=== PATIENT | female | born 1990 | race Two or more races ===

== ENCOUNTER 2017-07-05 19:37 | Emergency (ER) | payer SELFPAY, MEDICAID ==
[2017-07-05] MEDS: predniSONE 20 MG TABLET PO (20:53)
[2017-07-05] MEDS: CETIRIZINE HCL 10 MG TABLET. PO (20:53)
== END 2017-07-05 21:01 | disposition home or self-care (01) ==
LOC: ER 19:37
DX: B01.9 Varicella without complication (principal)
CPT/HCPCS: 99283; J7512

== ENCOUNTER 2019-07-06 17:51 | Emergency (ER) | payer SELFPAY ==
[~2019-07-06 17:51] MED LIST: ACYC800T PO; HYDR25TA PO; METH4TAB2 PO
[2019-07-06 18:05] VITALS: BP 136/59
[2019-07-06 19:23] LABS: INFLUENZA A PATIENT NEGATIVE (NEGATIVE)
[2019-07-06 19:25] LABS: INFLUENZA B PATIENT POSITIVE (NEGATIVE)
[2019-07-06] MEDS ORDERED: OSEL75CA PO (19:40)
--- NOTE | 2019-07-06 19:41 | PHYS DOC ---
Past Medical History Past Medical History: No Pertinent History Past Surgical History: No Surgical History Alcohol Use: None Drug Use: None Adult General Chief Complaint Chief Complaint: FEVER HPI HPI Patient is a 28 year old female who presents to the ED today with fever, body aches, chills and headaches that began yesterday. Review of Systems Review of Systems Constitutional: Reports fever, body aches and chills] Eyes: Denies change in visual acuity, redness, or eye pain [] HENT: Denies nasal congestion or sore throat [] Respiratory: Denies cough or shortness of breath [] Cardiovascular: No additional information not addressed in HPI [] GI: Denies abdominal pain, nausea, vomiting, bloody stools or diarrhea [] : Denies dysuria or hematuria [] Musculoskeletal: Denies back pain or joint pain [] Integument: Denies rash or skin lesions [] Neurologic: Reports headaches, denies focal weakness or sensory changes [] All other systems were reviewed and found to be within normal limits, except as documented in this note. Allergies Allergies Allergies Coded Allergies Type Severity Reaction Last Updated Verified No Known Drug Allergies 07/05/17 No Physical Exam Physical Exam Constitutional: Well developed, well nourished, no acute distress, non-toxic appearance. [] HENT: Normocephalic, atraumatic, bilateral external ears normal, oropharynx moist, no oral exudates, nose normal. [] Eyes: PERRLA, EOMI, conjunctiva normal, no discharge. [] Neck: Normal range of motion, no tenderness, supple, no stridor. [] Cardiovascular:Heart rate regular rhythm, no murmur [] Lungs & Thorax: Bilateral breath sounds clear to auscultation [] Abdomen: Bowel sounds normal, soft, no tenderness, no masses, no pulsatile masses. [] Skin: Warm, dry, no erythema, no rash. [] Back: No tenderness, no CVA tenderness. [] Extremities: No tenderness, no cyanosis, no clubbing, ROM intact, no edema. [] Neurologic: Alert and oriented X 3, normal motor function, normal sensory function, no focal deficits noted. [] Psychologic: Affect normal, judgement normal, mood normal. [] Current Patient Data Vital Signs Vital Signs Date Time Temp Pulse Resp B/P (MAP) Pulse Ox O2 Delivery O2 Flow Rate FiO2 07/06/19 18:05 98.3 104 12 136/59 (84) 96 Room Air 98.3 Lab Values Laboratory Tests Test 07/06/19 18:20 Influenza Type A Antigen Negative (NEGATIVE) Influenza Type B Antigen Positive (NEGATIVE) EKG EKG [] Radiology/Procedures Radiology/Procedures [] Course & Med Decision Making Course & Med Decision Making Pertinent Labs and Imaging studies reviewed. (See chart for details) This is a 28-year-old female patient presenting to the ED today with flulike symptoms including fever or body aches and chills that began yesterday. Positive for influenza B. Discharged with Tamiflu. Follow-up with PCP in 1-2 weeks. Dragon Disclaimer Dragon Disclaimer This electronic medical record was generated, in whole or in part, using a voice recognition dictation system. Departure Departure Impression: Primary Impression: Influenza B Additional Impression: Fever Disposition: HOME, SELF-CARE Condition: STABLE Referrals: NO PCP (PCP) follow up in 1-2 weeks Patient Instructions: Influenza, Adult, [id number] Additional Instructions: You tested positive for influenza B. We'll put you on Tamiflu, take it as prescribed. Take Tylenol/ibuprofen as needed for pain or fever. Push fluids, rest, maintain good hand hygiene and follow-up with your own doctor in 1-2 weeks. Scripts Oseltamivir Phosphate (TAMIFLU) 75 Mg Capsule 1 CAP PO BID, #10 CAP Prov: YONATAN RUTLEDGE APRN 07/06/19 Problem Qualifiers Additional Impression: Fever Fever type: unspecified Qualified Codes: R50.9 - Fever, unspecified YONATAN RUTLEDGE [employer] Jul 06, 2019 19:41
== END 2019-07-06 20:06 | disposition home or self-care (01) ==
LOC: ER 17:51
DX: J10.1 Influenza due to other identified influenza virus with other respiratory manifestations (principal); R50.9 Fever, unspecified; R51 Headache
CPT/HCPCS: 87804; 99284

== ENCOUNTER 2020-08-07 20:21 | Inpatient (IN) | payer MEDICAID ==
[~2020-08-07] VITALS: Ht 162.6 cm; Wt 80.3 kg
[~2020-08-07 20:21] MED LIST changes: +OSEL75CA PO
[2020-08-07] MEDS ORDERED: IV RINGERS,LACTATED 1000ML 1,000 ML IV PRN ×2 (20:45→21:30)
[2020-08-07 21:04] LABS: BILIRUBIN,URINE NEGATIVE (NEG); CLARITY,URINE CLEAR; COLOR,URINE YELLOW; NITRITE,URINE NEGATIVE (NEG); PH,URINE 6.5 (<5.0-8.0); PROTEIN,URINE >=300 mg/dL (NEG-TRACE)
[2020-08-07 21:09] LABS: BARBITURATES NEG (NEG); BENZODIAZEPINES NEG (NEG); CANNABINOIDS NEG (NEG); COCAINE NEG (NEG); METHADONE NEG (NEG); OPIATES NEG (NEG); PHENCYCLIDINE NEG (NEG)
[2020-08-07 21:11] LABS: BACTERIA,URINE MODERATE /HPF (0-FEW); WBC,URINE 20-40 /HPF (0-4)
[2020-08-07 21:12] LABS: AMPHETAMINE/METHAMPHETAMINE NEG (NEG)
[2020-08-07 21:13] LABS: YEAST,URINE PRESENT /HPF
[2020-08-07] MEDS ORDERED: OXYTOCIN 30 UNIT/500 ML PREMIX 500 ML IV PRN ×2 (21:30)
[2020-08-07] MEDS ORDERED: fentaNYL PF VIAL 100 MCG/2 ML VIAL IVP PRN (21:30)
[2020-08-07] MEDS ORDERED: 0.9 % SODIUM CHLORIDE 10 ML DISP.SYRIN. IV PRN ×2 (21:30)
[2020-08-07] MEDS ORDERED: LIDOCAINE 1% PF 30 ML VIAL. INJ PRN (21:30)
[2020-08-07] MEDS ORDERED: TERBUTALINE 1 MG/ML VIAL. SQ PRN (21:30)
[2020-08-07] MEDS ORDERED: ONDANSETRON PF 4 MG/2 ML VIAL. IVP PRN (21:30)
[2020-08-07] MEDS ORDERED: IBUPROFEN 400 MG TABLET. PO PRN (21:30)
[2020-08-07] MEDS ORDERED: ACETAMINOPHEN 500 MG TABLET PO PRN (22:00)
[2020-08-07] MEDS ORDERED: PENICILLIN G K 5,000,000 UNIT in IV DEXTROSE 5% 100ML 100 ML IV ONE (22:00)
[2020-08-07 22:09] VITALS: BP 152/86
[2020-08-07 22:17] LABS: BASO # 0.1 x10^3/uL (0.0-0.2); BASO % 1 % (0-3); EOS # 0.1 x10^3/uL (0.0-0.7); EOS % 1 % (0-3); HEMATOCRIT 30.3 % (36.0-47.0); LYMPH # 1.6 x10^3/uL (1.0-4.8); LYMPH % 16 % (24-48); MEAN CORPUSCULAR HEMOGLOBIN 25 pg (25-35); MEAN CORPUSCULAR HGB CONC 33 g/dL (31-37); MEAN CORPUSCULAR VOLUME 75 fL (79-100); MONO # 0.7 x10^3/uL (0.0-1.1); MONO % 7 % (0-9); NEUT # 7.6 x10^3/uL (1.8-7.7); NEUT % 76 % (31-73); PLATELET COUNT 292 x10^3/uL (140-400); RED BLOOD COUNT 4.04 x10^6/uL (3.50-5.40); RED CELL DISTRIBUTION WIDTH 16.3 % (11.5-14.5)
[2020-08-07 22:33] LABS: CALCIUM 8.9 mg/dL (8.5-10.1); CREATININE 0.7 mg/dL (0.6-1.0); GFR 99.6; POTASSIUM 3.6 mmol/L (3.5-5.1)
[2020-08-07 22:36] LABS: CREATININE,RANDOM URINE 48.1 mg/dL (Not Establ.)
[2020-08-07 22:43] LABS: ALBUMIN 2.5 g/dL (3.4-5.0); ALBUMIN/GLOBULIN RATIO 0.6 (1.0-1.7); DIRECT BILIRUBIN 0.1 mg/dL (0.0-0.2); TOTAL BILIRUBIN 0.4 mg/dL (0.2-1.0); TOTAL PROTEIN 6.8 g/dL (6.4-8.2); URIC ACID 5.2 mg/dL (2.6-6.0)
[2020-08-07] MEDS ORDERED: MAGNESIUM SULFATE 4GM 100 ML IV ONE (23:00)
[2020-08-07] MEDS ORDERED: hydrALAZINE 20 MG/ML VIAL. IVP PRN (23:00)
[2020-08-07] MEDS ORDERED: MAGNESIUM SULFATE 2GM 50 ML IV ONE (23:30)
[2020-08-07] MEDS: MAGNESIUM SULFATE 20GM 500 ML IV SCH (23:33)
[2020-08-08] VITALS (9 sets, daily range): BP systolic 122–142; BP diastolic 72–82
--- NOTE | 2020-08-08 00:21 | RAD ---
Limited OB ultrasound greater than 14 weeks to 1421 Clinical History: Near-term . Maternal hypertension. No care. Technique: A real-time ultrasound examination of the gravid uterus was performed. Multiple images wer e obtained. Findings: There is a single living IUP. The fetus is in a vertex position. cardiac and somatic activity is seen. The heart rate is 147 beats per minutes. The placenta is in a left lateral an terior/fundal position. No significant abnormality is seen. The amniotic fluid volume is within the l ower limits of normal. The BRAD measures 4.7 cm. The largest pocket of fluid measures 2.75 cm . Neithe r maternal ovary is visualized. The following measurements were obtained: BPD 8.65cm 34 weeks 6 days HC 32.46 cm 36weeks 5 days AC 29.23 cm 33weeks to days FL 6.93 cm 35 weeks 4 days The estimated gestational age by ultrasound is 35 weeks 1 days plus or minus a standard deviation of 3 weeks. The estimated date of delivery by ultrasound is 09/10/2020. The estimated weight is 242 6 g +/- 359 g (5 lbs. 6 oz.) Detailed evaluation of anatomy was not performed due to the advanced age of this . Impression: Single living IUP with an estimated gestational age by ultrasound of 35 weeks1 days +/- a standard deviation of 3 weeks. Estimated weight is 2426 g +/- 359 g (5 lbs. 6 oz.) Electronically signed by: Max Fernandez MD (08/08/2020 12:18 AM) [id number]
[2020-08-08] MEDS: BETAMET ACET&NA PHOS 30 MG/5 ML VIAL. IM SCH (00:49)
[2020-08-08] MEDS: PENICILLIN G K 2,500,000 UNIT in IV DEXTROSE 5% 50 ML IV SCH ×6 (02:19→22:00)
[2020-08-08] MEDS ORDERED: OXYTOCIN 10 UNIT/ML VIAL. ONE ×3 (08:00→08:51)
[2020-08-08] MEDS ORDERED: PHENYLEPHRINE in 0.9% NACL PF 1 MG/10 ML SYRINGE. IV ONE (08:00)
[2020-08-08] MEDS ORDERED: fentaNYL PF VIAL 100 MCG/2 ML VIAL ONE (08:15)
[2020-08-08] MEDS ORDERED: GLYCOPYRROLATE 1 MG/5 ML VIAL. ONE (08:22)
[2020-08-08] MEDS ORDERED: MORPHINE PF 10 MG/10 ML AMPUL. ONE (08:48)
[2020-08-08] MEDS ORDERED: DEXAMETHASONE SOD PHOS 4 MG/ML VIAL ONE (08:51)
[2020-08-08] MEDS ORDERED: ONDANSETRON PF 4 MG/2 ML VIAL. ONE (08:51)
[2020-08-08 09:03] LABS: HEMATOCRIT 27.2 % (36.0-47.0); HEMOGLOBIN 8.7 g/dL (12.0-15.5); MEAN CORPUSCULAR HEMOGLOBIN 24 pg (25-35); MEAN CORPUSCULAR HGB CONC 32 g/dL (31-37); MEAN CORPUSCULAR VOLUME 76 fL (79-100); RED BLOOD COUNT 3.56 x10^6/uL (3.50-5.40); WHITE BLOOD COUNT 11.2 x10^3/uL (4.0-11.0)
[2020-08-08 09:04] LABS: BASO % 0 % (0-3); EOS % 0 % (0-3); LYMPH # 1.5 x10^3/uL (1.0-4.8); LYMPH % 13 % (24-48); MONO # 0.1 x10^3/uL (0.0-1.1); MONO % 1 % (0-9); NEUT # 9.5 x10^3/uL (1.8-7.7); NEUT % 85 % (31-73); PLATELET COUNT 282 x10^3/uL (140-400); RED CELL DISTRIBUTION WIDTH 16.7 % (11.5-14.5)
[2020-08-08 09:08] LABS: PROTHROMBIN TIME PATIENT 13.5 SEC (11.7-14.0)
[2020-08-08 09:19] LABS: ALBUMIN/GLOBULIN RATIO 0.6 (1.0-1.7); CALCIUM 7.2 mg/dL (8.5-10.1); CREATININE 0.9 mg/dL (0.6-1.0); GFR 74.6; POTASSIUM 4.9 mmol/L (3.5-5.1); TOTAL BILIRUBIN 0.3 mg/dL (0.2-1.0); TOTAL PROTEIN 5.4 g/dL (6.4-8.2)
--- NOTE | 2020-08-08 09:32 | OP ---
DATE OF SURGERY: 08/08/2020 PREOPERATIVE DIAGNOSES: 1. A 35 weeks intrauterine . 2. No care. 3. Preeclampsia. 4. Vaginal bleeding. POSTOPERATIVE DIAGNOSES: 1. A 35 weeks intrauterine . 2. No care. 3. Preeclampsia. 4. Vaginal bleeding. 5. Placental abruption. PROCEDURE: Primary low transverse section. SURGEON: Lorena Chen MD ANESTHESIA: GETA. ESTIMATED BLOOD LOSS: 1500 mL. COMPLICATIONS: None. FINDINGS: Viable male infant, Apgars 8 and 9, weight 2830 grams. Placenta abruption about 30%. SUMMARY: A 29-year-old 6, para 5, presented to Labor and Delivery with complaints of abdominal cramping and contractions. The patient was found to be 2 cm dilated at that time. Her blood pressures were very severely elevated. Ultrasound indicated a 35 weeks' gestation. The patient's labs also indicated preeclampsia. She was started on magnesium sulfate and started on betamethasone for lung maturity. Following morning, the patient had vaginal bleeding of about 400 mL and was only 4 cm dilated with a suspicion of placental abruption. The patient was counseled on the risks, benefits and expectations for emergent section and voiced clear understanding to proceed. DESCRIPTION OF PROCEDURE: The patient was taken to surgery suite and placed in dorsal supine position. She was prepped with ChloraPrep and draped in sterile fashion. After adequate anesthesia, Pfannenstiel skin incision was made with a scalpel down to and through the fascia. The fascia was extended laterally using curved Carpenter scissors. The superior edge of fascia was grasped with two Abhinav clamps and dissected free of the abdominal rectus muscles using blunt dissection along with curved Carpenter scissors. The same process took place inferiorly. Abdominal rectus muscles were dissected bluntly at the midline. Peritoneum was grasped with 2 hemostats and entered sharply with Metzenbaum scissors. This incision was extended superiorly as well as inferiorly. The Alo ring retractor was placed. A low transverse hysterotomy incision was made with scalpel down to the infant. Hysterotomy incision was extended laterally and superiorly digitally. With the aid of fundal pressure, the 's head was delivered in a smooth atraumatic manner. With additional fundal pressure, the anterior shoulder was delivered followed by posterior shoulder. Rest of male was delivered. The infant was suctioned with a bulb syringe orally and nasally, umbilical cord was clamped twice and cut and viable male infant was handed to waiting nursing staff. Umbilical cord blood was then obtained as well as arterial pH. Three-vessel cord placenta was delivered by manual extraction. The uterus was then exteriorized and cleared of clot and debris with moist lap. Hysterotomy incision was reapproximated using 1 Vicryl suture in running locked fashion. Two [id number]-[id number] sutures were placed on the left apex of the hysterotomy incision near the uterine artery, which there was uterine artery ligation as well with 1-0 Vicryl suture, imbricated layer of 1 Vicryl suture was utilized in a running fashion for better hemostasis. Uterus palpated firm. Fallopian tubes and ovaries appeared normal bilaterally. Posterior cul-de-sac was cleared of clot and debris with moist lap. The uterus was then returned to the abdomen. Pericolic gutters were cleared of clot and debris with a moist lap. Hysterotomy incision was reviewed and hemostatic. The Alo ring retractor was removed. The peritoneum was reapproximated using 1 Vicryl suture in running fashion. Abdominal rectus muscles were reapproximated using 1 Vicryl suture in running fashion. Fascia was reapproximated using 0 Vicryl suture in running fashion. Subcutaneous space was reapproximated using 1 Vicryl suture in running fashion. Skin was reapproximated using 4-0 Vicryl suture in subcuticular manner. X-ray was performed due to the emergent status of the surgery, which did not indicate any retained instruments or sponges. The patient was then taken to recovery room in stable condition. LORENA CHEN MD DR: CHRISTIANO/denis JOB#: [id number] / [id number]
--- NOTE | 2020-08-08 09:57 | RAD ---
PROCEDURE: XR ABDOMEN 1V STUDY DATE: 08/08/2020 CLINICAL INDICATION / HISTORY: Reason: POST EMERGENCY C SECTION KUB, NO COUNTS DONE PRIOR / Spl. Ins tructions: / History: . TECHNIQUE: Single AP image of the abdomen was obtained. COMPARISON: Limited OB ultrasound of 08/07/2020 FINDINGS: Dense mass in the midline pelvis correlates with the patient's uterus. There are bowel loo ps that appear nondilated and there is gas on both sides of the bowel wall in some loops, suggesting some amount of free intraperitoneal air, likely postoperative. No radiopaque foreign body suggestive of a surgical sponge or instrument is identified in the included field of view. IMPRESSION: uterus and postsurgical changes in the abdomen with no findings suggesting retained surgic al instruments in the included field of view Electronically signed by: Florencio Mena MD (08/08/2020 9:54 AM) [id number]
[2020-08-08] MEDS ORDERED: SEVOFLURANE 31 TO 60 MINUTES. IH ONE (10:25)
[2020-08-08 12:26] LABS: BASO # 0.1 x10^3/uL (0.0-0.2); BASO % 0 % (0-3); EOS % 0 % (0-3); HEMATOCRIT 33.9 % (36.0-47.0); LYMPH # 0.7 x10^3/uL (1.0-4.8); LYMPH % 3 % (24-48); MEAN CORPUSCULAR HEMOGLOBIN 26 pg (25-35); MEAN CORPUSCULAR HGB CONC 32 g/dL (31-37); MEAN CORPUSCULAR VOLUME 80 fL (79-100); MONO # 0.3 x10^3/uL (0.0-1.1); MONO % 1 % (0-9); NEUT # 25.3 x10^3/uL (1.8-7.7); NEUT % 96 % (31-73); PLATELET COUNT 242 x10^3/uL (140-400); RED BLOOD COUNT 4.24 x10^6/uL (3.50-5.40); RED CELL DISTRIBUTION WIDTH 18.3 % (11.5-14.5); WHITE BLOOD COUNT 26.4 x10^3/uL (4.0-11.0)
--- NOTE | 2020-08-08 14:18 | PDOC1 ---
OB - History Hx of Present Care: None Ultrasounds: No ultrasounds Obstetrical Complications: None Medical Complications: None Past Family/Social History * Past Medical, Surgical, Family and Obstetric Histories reviewed from chart. Blood Type: Unknown Rubella: Unknown RPR/VDRL: Unknown GBS Status: Unknown HBsAG: Unknown OB - Chief Complaint & HPI Date of Admission: Date of Admission: Aug 07, 2020 at 20:21 Chief Complaint/History : 6 Para: 5 EGA: 35 Reason for admission: labor Admission Nurse Assessment Rev: Yes OB - Admission Exam Physical Exam Vitals: VS - Last 72 Hours, by Label Date Time Temp Pulse Resp B/P (MAP) Pulse Ox O2 Delivery O2 Flow Rate FiO2 08/07/20 23:08 77 182/92 08/07/20 22:09 98.7 81 18 152/86 (108) 98 Room Air 98.7 HEENT: Normal Heart: Regular Rate Lungs: Clear Abdomen: Gravid, Non tender, Soft Extremities: Edema Reflexes: Normal Cervical Dilatation: 3cm Effacement: 50% Station: -3 Membranes: Intact Heart Rate: Normal Accelerations: Accelerations Present Decelerations: No decelerations Contractions on Admission: 6-10 Minutes Apart Intensity: Mild Text A: 35 wks IUP by today's sono No PNC PTL with preeclampsia P: Admit magnesium sulfate and start corticosteroids for FLM. Treat severe blood pressures. LORENA BOB Jr, MD Aug 08, 2020 14:18
[2020-08-08] MEDS ORDERED: KETOROLAC 30 MG/ML VIAL. INJ PRN (15:15)
[2020-08-08 16:15] LABS: BASO # 0.1 x10^3/uL (0.0-0.2); BASO % 0 % (0-3); EOS % 0 % (0-3); HEMATOCRIT 35.4 % (36.0-47.0); HEMOGLOBIN 11.3 g/dL (12.0-15.5); LYMPH # 0.9 x10^3/uL (1.0-4.8); LYMPH % 4 % (24-48); MEAN CORPUSCULAR HEMOGLOBIN 26 pg (25-35); MEAN CORPUSCULAR HGB CONC 32 g/dL (31-37); MEAN CORPUSCULAR VOLUME 80 fL (79-100); MONO # 0.3 x10^3/uL (0.0-1.1); MONO % 1 % (0-9); NEUT # 21.6 x10^3/uL (1.8-7.7); NEUT % 94 % (31-73); PLATELET COUNT 248 x10^3/uL (140-400); RED BLOOD COUNT 4.41 x10^6/uL (3.50-5.40); RED CELL DISTRIBUTION WIDTH 18.1 % (11.5-14.5); WHITE BLOOD COUNT 22.9 x10^3/uL (4.0-11.0)
[2020-08-08] MEDS ORDERED: ONDANSETRON PF 4 MG/2 ML VIAL. IVP PRN (16:15)
[2020-08-08] MEDS ORDERED: 0.9 % SODIUM CHLORIDE 10 ML DISP.SYRIN. IV PRN (16:15)
[2020-08-08] MEDS ORDERED: diphenhydrAMINE ORAL ELIXIR 12.5 MG/5 ML ML PO PRN (16:15)
[2020-08-08] MEDS: FERROUS SULFATE 325 MG TABLET. PO SCH (17:00)
[2020-08-08] MEDS: MAGNESIUM SULFATE 20GM 500 ML IV SCH ×2 (18:22→20:00)
[2020-08-08 19:29] LABS: % BANDS 1 % (0-9); % LYMPHS 3 % (24-48); % SEGS 96 % (35-66); PLT ESTIMATE ADEQUATE (ADEQUATE)
[2020-08-08 19:31] LABS: ANISOCYTOSIS SLIGHT; BURR CELLS OCC; POIKILOCYTOSIS SLIGHT
[2020-08-09] VITALS (9 sets, daily range): BP systolic 115–135; BP diastolic 46–72
[2020-08-09] MEDS: BETAMET ACET&NA PHOS 30 MG/5 ML VIAL. IM SCH (01:00)
[2020-08-09] MEDS: PENICILLIN G K 2,500,000 UNIT in IV DEXTROSE 5% 50 ML IV SCH (02:00)
[2020-08-09] MEDS: MAGNESIUM SULFATE 20GM 500 ML IV SCH (05:49)
[2020-08-09 06:15] LABS: BASO # 0.1 x10^3/uL (0.0-0.2); BASO % 0 % (0-3); EOS % 0 % (0-3); HEMOGLOBIN 10.1 g/dL (12.0-15.5); LYMPH # 1.2 x10^3/uL (1.0-4.8); LYMPH % 6 % (24-48); MEAN CORPUSCULAR HEMOGLOBIN 27 pg (25-35); MEAN CORPUSCULAR HGB CONC 34 g/dL (31-37); MEAN CORPUSCULAR VOLUME 80 fL (79-100); MONO % 4 % (0-9); NEUT # 20.4 x10^3/uL (1.8-7.7); NEUT % 90 % (31-73); PLATELET COUNT 294 x10^3/uL (140-400); RED BLOOD COUNT 3.76 x10^6/uL (3.50-5.40); RED CELL DISTRIBUTION WIDTH 17.8 % (11.5-14.5); WHITE BLOOD COUNT 22.7 x10^3/uL (4.0-11.0)
[2020-08-09 06:29] LABS: ALBUMIN 2.3 g/dL (3.4-5.0); ALBUMIN/GLOBULIN RATIO 0.6 (1.0-1.7); CALCIUM 7.1 mg/dL (8.5-10.1); TOTAL BILIRUBIN 0.3 mg/dL (0.2-1.0); TOTAL PROTEIN 6.2 g/dL (6.4-8.2)
[2020-08-09] MEDS: FERROUS SULFATE 325 MG TABLET. PO SCH (08:00)
[2020-08-09] MEDS: oxyCODONE/APAP 5/325 1 TAB TABLET PO PRN (18:29)
[2020-08-09] MEDS: SIMETHICONE 80 MG TAB.CHEW PO PRN (21:33)
[2020-08-09] MEDS: DOCUSATE SODIUM 100 MG CAPSULE. PO PRN (21:33)
[2020-08-10 00:05] VITALS: BP 140/78
[2020-08-10 04:00] VITALS: BP 150/81
[2020-08-10 06:00] VITALS: BP 147/78
[2020-08-10] MEDS: FERROUS SULFATE 325 MG TABLET. PO SCH ×2 (08:00→17:03)
[2020-08-10] MEDS: DOCUSATE SODIUM 100 MG CAPSULE. PO PRN ×2 (08:26→21:07)
[2020-08-10] MEDS: IBUPROFEN 400 MG TABLET. PO PRN ×2 (08:26→17:03)
[2020-08-10] MEDS: oxyCODONE/APAP 5/325 1 TAB TABLET PO PRN ×4 (08:27→21:06)
[2020-08-10] MEDS: MULTIVITAMIN with MINERAL TABLET. PO SCH (08:27)
[2020-08-10 09:00] VITALS: BP 145/83
--- NOTE | 2020-08-10 11:26 | PDOC ---
OB Progress Note Date of Service 08/10/20 Time of Evaluation 1120 Notes Pt. feeling well. Pain controlled. No complaints. Lab Laboratory Tests Test 08/08/20 12:09 08/08/20 16:10 08/09/20 06:00 White Blood Count 26.4 x10^3/uL (4.0-11.0) 22.9 x10^3/uL (4.0-11.0) 22.7 x10^3/uL (4.0-11.0) Red Blood Count 4.24 x10^6/uL (3.50-5.40) 4.41 x10^6/uL (3.50-5.40) 3.76 x10^6/uL (3.50-5.40) Hemoglobin 11.0 g/dL (12.0-15.5) 11.3 g/dL (12.0-15.5) 10.1 g/dL (12.0-15.5) Hematocrit 33.9 % (36.0-47.0) 35.4 % (36.0-47.0) 30.0 % (36.0-47.0) Mean Corpuscular Volume 80 fL (79-100) 80 fL (79-100) 80 fL (79-100) Mean Corpuscular Hemoglobin 26 pg (25-35) 26 pg (25-35) 27 pg (25-35) Mean Corpuscular Hemoglobin Concent 32 g/dL (31-37) 32 g/dL (31-37) 34 g/dL (31-37) Red Cell Distribution Width 18.3 % (11.5-14.5) 18.1 % (11.5-14.5) 17.8 % (11.5-14.5) Platelet Count 242 x10^3/uL (140-400) 248 x10^3/uL (140-400) 294 x10^3/uL (140-400) Neutrophils (%) (Auto) 96 % (31-73) 94 % (31-73) 90 % (31-73) Lymphocytes (%) (Auto) 3 % (24-48) 4 % (24-48) 6 % (24-48) Monocytes (%) (Auto) 1 % (0-9) 1 % (0-9) 4 % (0-9) Eosinophils (%) (Auto) 0 % (0-3) 0 % (0-3) 0 % (0-3) Basophils (%) (Auto) 0 % (0-3) 0 % (0-3) 0 % (0-3) Neutrophils # (Auto) 25.3 x10^3/uL (1.8-7.7) 21.6 x10^3/uL (1.8-7.7) 20.4 x10^3/uL (1.8-7.7) Lymphocytes # (Auto) 0.7 x10^3/uL (1.0-4.8) 0.9 x10^3/uL (1.0-4.8) 1.2 x10^3/uL (1.0-4.8) Monocytes # (Auto) 0.3 x10^3/uL (0.0-1.1) 0.3 x10^3/uL (0.0-1.1) 1.0 x10^3/uL (0.0-1.1) Eosinophils # (Auto) 0.0 x10^3/uL (0.0-0.7) 0.0 x10^3/uL (0.0-0.7) 0.0 x10^3/uL (0.0-0.7) Basophils # (Auto) 0.1 x10^3/uL (0.0-0.2) 0.1 x10^3/uL (0.0-0.2) 0.1 x10^3/uL (0.0-0.2) Segmented Neutrophils % 96 % (35-66) Band Neutrophils % 1 % (0-9) Lymphocytes % 3 % (24-48) Platelet Estimate Adequate (ADEQUATE) Large Platelets Few Giant Platelets Occ Poikilocytosis Slight Anisocytosis Slight Gio Cells Occ Sodium Level 131 mmol/L (136-145) Potassium Level 5.0 mmol/L (3.5-5.1) Chloride Level 100 mmol/L (98-107) Carbon Dioxide Level 21 mmol/L (21-32) Anion Gap 10 (6-14) Blood Urea Nitrogen 15 mg/dL (7-20) Creatinine 1.0 mg/dL (0.6-1.0) Estimated GFR (Cockcroft-Gault) 66.0 BUN/Creatinine Ratio 15 (6-20) Glucose Level 107 mg/dL (70-99) Calcium Level 7.1 mg/dL (8.5-10.1) Total Bilirubin 0.3 mg/dL (0.2-1.0) Aspartate Amino Transf (AST/SGOT) 50 U/L (15-37) Alanine Aminotransferase (ALT/SGPT) 24 U/L (14-59) Alkaline Phosphatase 134 U/L (46-116) Total Protein 6.2 g/dL (6.4-8.2) Albumin 2.3 g/dL (3.4-5.0) Albumin/Globulin Ratio 0.6 (1.0-1.7) Medications Current Medications Ringer's Solution 1,000 ml @ 125 mls/hr Q8H PRN IV hydration Last administered on 08/07/20at 23:05; Start 08/07/20 at 20:45; Stop 08/08/20 at 11:28; Status DC Sodium Chloride (Normal Saline Flush) 3 ml QSHIFT PRN IV AFTER MEDS AND BLOOD DRAWS; Start 08/07/20 at 21:30 Ringer's Solution 1,000 ml @ 125 mls/hr Q8H PRN IV hydration Last administered on 08/07/20at 21:50; Start 08/07/20 at 21:30 Fentanyl Citrate (Fentanyl 2ml Vial) 100 mcg PRN Q30MIN PRN IVP Severe pain; Start 08/07/20 at 21:30 Acetaminophen (Tylenol) 1,000 mg PRN Q6HRS PRN PO MILD PAIN / TEMP > 100.3'F Last administered on 08/08/20at 03:49; Start 08/07/20 at 22:00 Ondansetron HCl (Zofran) 8 mg PRN Q4HRS PRN IVP NAUSEA/VOMITING 1ST CHOICE; Start 08/07/20 at 21:30 Terbutaline Sulfate (Brethine) 0.25 mg 1X PRN PRN SQ SEE COMMENTS; Start 08/07/20 at 21:30; Stop 08/08/20 at 21:29; Status DC Lidocaine HCl (Xylocaine 1% Pf 30ml Vial) 30 ml 1X PRN PRN INJ SEE COMMENTS; Start 08/07/20 at 21:30; Stop 08/09/20 at 21:29; Status DC Oxytocin 500 ml @ 0 mls/hr CONT PRN IV SEE I/O RECORD; Start 08/07/20 at 21:30 Oxytocin 500 ml @ 0 mls/hr CONT PRN PRN IV Post delivery bleeding; Start 08/07/20 at 21:30 Ibuprofen (Motrin) 800 mg PRN Q6HRS PRN PO MODERATE PAIN 4-6; Start 08/07/20 at 21:30; Stop 08/08/20 at 16:16; Status DC Penicillin G Potassium 8130346 unit/Dextrose 100 ml @ 100 mls/hr 1X ONCE IV Last administered on 08/07/20at 23:18; Start 08/07/20 at 22:00; Stop 08/07/20 at 22:59; Status DC Penicillin G Potassium [id number] unit/Dextrose 50 ml @ 100 mls/hr Q4H IV Last administered on 08/08/20at 05:56; Start 08/08/20 at 02:00; Stop 08/09/20 at 05:52; Status DC Sodium Chloride (Normal Saline Flush) 3 ml QSHIFT PRN IV AFTER MEDS AND BLOOD DRAWS; Start 08/07/20 at 21:30 Magnesium Sulfate 50 ml @ 25 mls/hr 1X ONCE IV Last administered on 08/07/20at 23:11; Start 08/07/20 at 23:30; Stop 08/08/20 at 01:29; Status DC Magnesium Sulfate 100 ml @ 25 mls/hr 1X ONCE IV Last administered on 08/07/20at 23:07; Start 08/07/20 at 23:00; Stop 08/08/20 at 02:59; Status DC Magnesium Sulfate 500 ml @ 50 mls/hr Q10H IV Last administered on 08/09/20at 05:49; Start 08/08/20 at 00:00 Hydralazine HCl (Apresoline Inj) 5 mg PRN Q15MIN PRN IVP ELEVATED BP, SEE COMMENTS Last administered on 08/07/20at 23:08; Start 08/07/20 at 23:00 Betamethasone Sodium Phosphate (Celestone Soluspan) 12 mg Q24H IM Last administered on 08/08/20at 00:49; Start 08/08/20 at 01:00; Stop 08/09/20 at 05:52; Status DC Phenylephrine HCl (PHENYLEPHRINE in 0.9% NACL PF) 1 mg STK-MED ONCE IV ; Start 08/08/20 at 08:00; Stop 08/08/20 at 08:01; Status DC Oxytocin (Pitocin) 10 unit STK-MED ONCE .ROUTE ; Start 08/08/20 at 08:00; Stop 08/08/20 at 08:01; Status DC Ephedrine Sulfate (Akovaz) 50 mg STK-MED ONCE .ROUTE ; Start 08/08/20 at 08:00; Stop 08/08/20 at 08:01; Status DC Fentanyl Citrate (Fentanyl 2ml Vial) 100 mcg STK-MED ONCE .ROUTE ; Start 08/08/20 at 08:15; Stop 08/08/20 at 08:16; Status DC Glycopyrrolate (Robinul) 1 mg STK-MED ONCE .ROUTE ; Start 08/08/20 at 08:22; Stop 08/08/20 at 08:22; Status DC Morphine Sulfate (Morphine Preservative Free) 10 mg STK-MED ONCE .ROUTE ; Start 08/08/20 at 08:48; Stop 08/08/20 at 08:52; Status DC Oxytocin (Pitocin) 10 unit STK-MED ONCE .ROUTE ; Start 08/08/20 at 08:51; Stop 08/08/20 at 08:53; Status DC Oxytocin (Pitocin) 10 unit STK-MED ONCE .ROUTE ; Start 08/08/20 at 08:51; Stop 08/08/20 at 08:53; Status DC Dexamethasone Sodium Phosphate (Decadron) 4 mg STK-MED ONCE .ROUTE ; Start 08/08/20 at 08:51; Stop 08/08/20 at 08:53; Status DC Ondansetron HCl (Zofran) 4 mg STK-MED ONCE .ROUTE ; Start 08/08/20 at 08:51; Stop 08/08/20 at 08:53; Status DC Sevoflurane (Ultane) 30 ml STK-MED ONCE IH ; Start 08/08/20 at 10:25; Stop 08/08/20 at 10:26; Status DC Ketorolac Tromethamine (Toradol 30mg Vial) 30 mg PRN Q6HRS PRN INJ MODERATE PAIN Last administered on 08/08/20at 23:35; Start 08/08/20 at 15:15; Stop 08/13/20 at 15:14 Sodium Chloride (Normal Saline Flush) 3 ml QSHIFT PRN IV AFTER MEDS AND BLOOD DRAWS; Start 08/08/20 at 16:15 Ibuprofen (Motrin) 800 mg PRN Q8HRS PRN PO INFLAMMATION Last administered on 08/10/20 08:26; Start 08/08/20 at 16:15 Ondansetron HCl (Zofran) 4 mg PRN Q6HRS PRN IVP NAUSEA/VOMITING Last administered on 08/10/20 08:41; Start 08/08/20 at 16:15 Docusate Sodium (Colace) 100 mg PRN BID PRN PO HARD STOOLS Last administered on 08/10/20 08:26; Start 08/08/20 at 16:15 Simethicone (Gas-X) 80 mg PRN AFTMEALHC PRN PO GAS / BLOATING Last administered on 08/09/20 21:33; Start 08/08/20 at 16:15 Diphenhydramine HCl (Benadryl Oral Elixir) 12.5 mg PRN Q6HRS PRN PO ITCHING; Start 08/08/20 at 16:15 Ferrous Sulfate (Feosol) 325 mg BIDWMEALS PO Last administered on 08/09/20 08:00; Start 08/08/20 at 17:00 Multivitamins (Thera M Plus) 1 tab DAILY PO Last administered on 08/10/20 08:27; Start 08/09/20 at 09:00 Oxycodone/ Acetaminophen (Percocet 5/325) 1 tab PRN Q4HRS PRN PO MILD PAIN 1-3 Last administered on 08/10/20 08:27; Start 08/08/20 at 16:15 Oxycodone/ Acetaminophen (Percocet 5/325) 2 tab PRN Q4HRS PRN PO MODERATE PAIN, SEVERE PAIN Last administered on 08/09/20 18:29; Start 08/08/20 at 16:15 Nifedipine (Procardia Xl) 30 mg DAILY PO Last administered on 08/10/20at 11:14; Start 08/09/20 at 10:00 Active Scripts Active Tamiflu (Oseltamivir Phosphate) 75 Mg Capsule 1 Cap PO BID Medrol (Methylprednisolone) 4 Mg Tab.ds.pk 1 Pkg PO UD Hydroxyzine Hcl 25 Mg Tablet 1 Tab PO TID Acyclovir 800 Mg Tablet 1 Tab PO 5XDAY Exam Abd: soft, non tender, fundus firm Incision site: clean, dry and intact Assessment POD#2 s/p c/s Plan of Care: Continue current Tx, Mgmt LORENA BOB Jr, MD Aug 10, 2020 11:26
[2020-08-10 17:00] VITALS: BP 144/86
[2020-08-10 19:30] VITALS: BP 154/78
[2020-08-10] MEDS: SIMETHICONE 80 MG TAB.CHEW PO PRN (21:06)
[2020-08-11 01:30] VITALS: BP 144/84
[2020-08-11 05:30] VITALS: BP 160/88
[2020-08-11 06:00] VITALS: BP 142/82
[2020-08-11 06:30] VITALS: BP 140/79
[2020-08-11] MEDS: IBUPROFEN 400 MG TABLET. PO PRN (08:16)
[2020-08-11] MEDS: oxyCODONE/APAP 5/325 1 TAB TABLET PO PRN ×2 (08:16→13:47)
[2020-08-11] MEDS: MULTIVITAMIN with MINERAL TABLET. PO SCH (08:17)
[2020-08-11] MEDS: FERROUS SULFATE 325 MG TABLET. PO SCH (08:17)
--- NOTE | 2020-08-11 08:56 | PDOC3 ---
OB DISCHARGE SUMMARY DATE OF ADMISSION: 08/07/20 DATE OF DISCHARGE: 08/11/20 REASON FOR ADMISSION: Vaginal bleeding, section, Other (preeclampsia and placental abruption) INTRAPARTUM PROCEDURES: : Low Cerv Trans DISCHARGE DIAGNOSIS: Preclampsia () DISCHARGE INFORMATION: Activity (ad bobo), Diet (regular), Instructions (pelvic rest x 6 wks, no driving x 2 wks, no lifting > 20 lbs. x 6 wks) HOSPITAL COURSE Term gestation delivered section without complications. LORENA BOB Jr, MD Aug 11, 2020 08:56
[2020-08-11] MEDS ORDERED: FERR325T72 PO (08:59)
[2020-08-11] MEDS ORDERED: DOCU-153 PO (08:59)
[2020-08-11] MEDS ORDERED: OXYC1TAB15 PO (08:59)
[2020-08-11] MEDS ORDERED: IBUP-1027 PO (08:59)
--- NOTE | 2020-08-11 09:00 | DISCH ---
DISCHARGE INSTRUCTIONS Condition on Discharge Condition on Discharge: Stable Activity After Discharge Activity Instructions for Disc: Activity as tolerated Lifting Instructions after Dis: No heavy lifting Driving Instructions after Dis: No driving for 2 weeks Diet after Discharge Diet after Discharge: Regular Contacting the DRSydnee after DC Call your doctor for: Concerns you may have Follow-Up Follow up with: Dr. Chen in 2 weeks. LOERNA CHEN Jr, MD Aug 11, 2020 09:00
[2020-08-11 10:40] VITALS: BP 141/81
[2020-08-11 14:40] VITALS: BP 144/92
--- NOTE | 2020-08-11 15:08 | NUR ---
Patient taken down in wheelchair to vehicle with family. No questions verbalized at this time.
--- NOTE | 2020-08-12 09:17 | PATHOLOGY ---
[facility] Accession Number: [id number] . 01 Material submitted: . placenta - PLACENTA WITH CORD . 01 Clinical history: . IUP, PIH, ABRUPTION PRIMARY C SECTION ITD PNC, PIH,UNCERTAIN EDC INDUCED HYPERTENSION ABRUPTIO PLACENTA . 02 Diagnosis: 456 gram term placenta of an estimated 39 weeks gestation with attached membranes and umbilical cord and separate segment of umbilical cord: - Recent retroplacental and retromembranous hemorrhage. - Small placental infarct and focal intervillous fibrin deposition with villous entrapment and calcifications adjacent to maternal surface. - Accessory lobe. [facility] 08/12/2020 0836 Local . 02 Comment: There is no evidence of an acute chorioamnionitis or villitis. (JPM/db; 08/11/2020) . 02 Electronically signed: . Duran Lua MD, Pathologist NPI- [id number] . 01 Gross description: . The specimen is received in formalin labeled "Agustin, Marmita, placenta" and consists of a circular cardoso placenta measuring 18.8 x 17.1 x 2.5 cm and weighing 456 g after removal of membranes and umbilical cord. The membranes are pink-arevalo thin and translucent with moderate retro-membranous clot. There is an accessory lobe measuring 3.5 x 3.4 cm which is connected by intact membranes and vessels. The surface is bluegray and well vascularized with an eccentrically inserted 3 vessel umbilical cord, 3.0 cm from edge. The cord measures 9.7 cm in length and ranging from 0.9-1.8 cm in diameter. Received separately is a clamped segment of umbilical cord measuring 49.1 cm in length and ranging from 0.9-2.0 cm in diameter. No true knots are identified. The maternal surface shows complete and intact cotyledons with scattered adherent clot and fibrin deposition. Sectioning reveals a maroon-red and spongy parenchyma with no gross lesions. [employer] sections are submitted as follows: . A1: Surface vessels A2: Umbilical cord and membrane rolls A3: Accessory lobe A4: Full-thickness section A5: Maternal surface (SDY; 08/10/2020) SYU/SYU 08/10/2020 1147 Local . 02 Pathologist provided ICD-10: O43.893, Z37.9, Z3A.39 . 02 CPT . 906930 Specimen Comment: A courtesy copy of this report has been sent to [phone] Specimen Comment: Report sent to Performed at: 01 [facility] [address] [facility] [address], [place] [id number] MD Julian Guadarrama MD Phone: [phone] Performed at: 02 [facility] [address] [place], [place] [id number] MD Duran Lua MD Phone: [phone]
== END 2020-08-11 15:08 | disposition home or self-care (01) | DRG 788 ==
LOC: 3 SO LND 20:21 → OBSVTOIN 20:21 → 3 NORTH 08-09 21:30
PROVIDERS: ADMIT Obstetrics & Gynecology; ATTEND Obstetrics & Gynecology
PROC: 30233N1 Transfusion of Nonautologous Red Blood Cells into Peripheral Vein, Percutaneous Approach (ICD-10-PCS; principal; 2020-08-08)
PROC: 10D00Z1 Extraction of Products of Conception, Low, Open Approach (ICD-10-PCS; 2020-08-08)
DX: O14.94 Unspecified pre-eclampsia, complicating childbirth (principal); O60.14X0 Preterm labor third trimester with preterm delivery third trimester, not applicable or unspecified; O45.93 Premature separation of placenta, unspecified, third trimester; Z37.0 Single live birth; Z3A.35 35 weeks gestation of pregnancy; Z20.822 Contact with and (suspected) exposure to COVID-19
CPT/HCPCS: 36415; 36430; 74018; 76815; 80053; 80076; 80307; 81001; 82570; 83615; 84156; 84550; 85007; 85025; 85610; 85730; 86592; 86762; 86850; 86900; 86901; 86920; 87086; 87340; 87426; 87653; J0360; J0702; J1100; J1885; J2274; J2370; J2405; J2540; J2590; J3010; J3475; J3490; J7060; J7120; P9016; U0003; G0378

== ENCOUNTER 2021-02-04 18:08 | Emergency (ER) | payer MEDICAID ==
[~2021-02-04] VITALS: Ht 157.5 cm; Wt 50.9 kg
[~2021-02-04 18:08] MED LIST changes: -ACYC800T PO; +ACYC800T88 PO; +DOCU-148 PO; +FERR325T72 PO; +IBUP-1027 PO; +OXYC1TAB15 PO
[2021-02-04 21:07] LABS: BILIRUBIN,URINE NEGATIVE (NEG); CLARITY,URINE CLEAR; COLOR,URINE YELLOW; NITRITE,URINE NEGATIVE (NEG); PROTEIN,URINE NEGATIVE (NEG-TRACE); UROBILINOGEN,URINE 0.2 mg/dL (0.2 mg/dL)
[2021-02-04 21:19] VITALS: BP 113/59
[2021-02-04 21:20] LABS: BACTERIA,URINE FEW /HPF (0-FEW); RBC,URINE 0 /HPF (0-2)
--- NOTE | 2021-02-04 21:39 | PHYS DOC ---
Past Medical History Past Medical History: No Pertinent History Past Surgical History: Smoking Status: Never Smoker Alcohol Use: None Drug Use: None General Adult EDM: Chief Complaint: MULTIPLE COMPLAINTS HPI: HPI: Patient is a 30 year old female who is A0 approximately 10 weeks presents with a chief complaint of left shoulder pain and suprapubic discomfort. Patient states approximately 1 week ago while she was reaching into the ice box she had sudden onset of left shoulder pain. Patients pain has been constant since onset. . Patient's pain is located over the scapula and radiates anteriorly. Patient states pain is worse with movement and with deep breath. On exam patient patient's pain is reproducible to palpation of left anterior chest and palpation interscapular region. Patient also complains of suprapubic discomfort. Patient states onset of discomfort yesterday. She states pain comes and goes. She states she has some urinary urgency but denies any dysuria vaginal bleeding or vaginal discharge. Review of Systems: Review of Systems: Review of systems: Constitutional symptoms- No fever, no chills. Eyes- No Discharge, No Visual Loss Respiratory symptoms- Positive shortness of breath, No wheezing, No Dyspnea on Exertion Cardiovascular Systems; No chest pain, No Palpitations, No syncope Gastrointestinal symptoms: NO abdominal pain, no nausea, no vomiting or diarrhea. Genitourinary symptoms: No dysuria. Positive positive urinary frequency negative vaginal discharge negative vaginal bleeding Musculoskeletal symptoms: No back pain Positive extremity pain. Positive shoulder pain NEUROLOGICAL Symptoms: No headache, no generalized weakness; No focal Weakness Skin: No rash. Heart Score: C/O Chest Pain: N/A Risk Factors: Risk Factors: DM, Current or recent (<one month) smoker, HTN, HLP, family history of CAD, obesity. Risk Scores: Score 0 - 3: 2.5% MACE over next 6 weeks - Discharge Home Score 4 - 6: 20.3% MACE over next 6 weeks - Admit for Clinical Observation Score 7 - 10: 72.7% MACE over next 6 weeks - Early Invasive Strategies Allergies: Allergies: Allergies Coded Allergies Type Severity Reaction Last Updated Verified No Known Drug Allergies 07/05/17 No Physical Exam: PE: Constitutional: Well developed, well nourished, no acute distress, non-toxic appearance. [] HENT: Normocephalic, atraumatic, bilateral external ears normal, oropharynx moist, no oral exudates, nose normal. [] Eyes: PERRLA, EOMI, conjunctiva normal, no discharge. [] Neck: Normal range of motion, no tenderness, supple, no stridor. [] Cardiovascular:Heart rate regular rhythm, no murmur [] Lungs & Thorax: Bilateral breath sounds clear to auscultation [] Abdomen: Bowel sounds normal, soft, no tenderness, no masses, no pulsatile masses. [] Skin: Warm, dry, no erythema, no rash. [] Back: No tenderness, no CVA tenderness. [] Extremities: No tenderness, no cyanosis, no clubbing, ROM intact, no edema. [pain with ROM left shoulder, TTP left shoulder scapular region, Full Range of Motion LUE, LUE NVI] Neurologic: Alert and oriented X 3, normal motor function, normal sensory function, no focal deficits noted. [] Psychologic: Affect normal, judgement normal, mood normal. [] Current Patient Data: Labs: Laboratory Tests Test 02/04/21 19:31 02/04/21 19:35 Urine Collection Type Void Urine Color Yellow Urine Clarity Clear Urine pH 7.0 (<5.0-8.0) Urine Specific Randolph 1.010 (1.000-1.030) Urine Protein Negative mg/dL (NEG-TRACE) Urine Glucose (UA) Negative mg/dL (NEG) Urine Ketones (Stick) Negative mg/dL (NEG) Urine Blood Negative (NEG) Urine Nitrite Negative (NEG) Urine Bilirubin Negative (NEG) Urine Urobilinogen Dipstick 0.2 mg/dL (0.2 mg/dL) Urine Leukocyte Esterase Moderate (NEG) Urine RBC 0 /HPF (0-2) Urine WBC 11-20 /HPF (0-4) Urine Squamous Epithelial Cells Mod /LPF Urine Bacteria Few /HPF (0-FEW) POC Urine HCG, Qualitative Hcg positive (Negative) Vital Signs: Vital Signs Date Time Temp Pulse Resp B/P (MAP) Pulse Ox O2 Delivery O2 Flow Rate FiO2 02/04/21 19:25 98.2 79 16 108/84 (109) 99 Room Air 98.2 EKG: EKG: [] Radiology/Procedures: Radiology/Procedures: [] Course & Med Decision Making: Course & Med Decision Making Pertinent Labs and Imaging studies reviewed. (See chart for details) [] Patient was evaluated for chief complaint. Based upon history of present illness and physical exam no emergent treatment radiologic imaging. Urine p erformed consistent with a urinary tract infection. Patient shoulder pain and chest wall discomfort sudden onset after reaching for an object. Suspect this pain is musculoskeletal and exacerbated with movement. Patient with some suprapubic discomfort on and off with urinary frequency. Patient's urine consistent with a urinary tract infection. Patient advised to take Tylenol as needed for pain. Will prescribe patient Keflex. Patient to follow-up with her [employer]. Airam Disclaimer: Airam Disclaimer: This electronic medical record was generated, in whole or in part, using a voice recognition dictation system. Departure Departure Impression: Primary Impression: Shoulder pain Additional Impressions: Urinary tract infection Disposition: HOME / SELF CARE / HOMELESS Condition: STABLE Referrals: DARREL FELICIANO- (PCP) Patient Instructions: Musculoskeletal Pain, Shoulder Pain, Urinary Tract Infec tion Scripts Nitrofurantoin Monohyd/M-Cryst (MACROBID 100 MG CAPSULE) 100 Mg Capsule 1 CAP PO BID for 5 Days, #10 CAP 0 Refills Prov: SINDHU GUTIERREZ DO 02/04/21 SINDHU GUTIERREZ DO Feb 04, 2021 21:39
[2021-02-04] MEDS ORDERED: NITR100C62 PO (22:02)
== END 2021-02-04 22:30 | disposition home or self-care (01) ==
LOC: ER 18:08
DX: O23.41 Unspecified infection of urinary tract in pregnancy, first trimester (principal); M25.512 Pain in left shoulder; Z3A.10 10 weeks gestation of pregnancy
CPT/HCPCS: 81001; 81025; 87086; 99283